=== PATIENT | male | born 1970 | race African-American/Black ===

== ENCOUNTER 2017-07-08 16:27 | Emergency (ER) | payer SELFPAY ==
--- NOTE | 2017-07-08 16:34 | DR.EXTPAIN ---
HPI - Time seen Time seen: 16:30 - HPI Comment HPI Comment: PATIENT HAD LT HIP REPLACEMENT FEBRUARY 2016. FELT LIKE HIP MAY BE OUT OF PLACE. BENIES LOC, NECK PAIN OR TRAUMA TO HEAD. - Complaint/Symptoms Chief Complaint Doctor Comments: FELL AT [facility] AND HAVE LOWER BACK PAIN, LT HIP PAIN AND RT WRIST PAIN. - Nurses notes reviewed Nurses Notes Review: Yes - Source History Provided: Patient, EMS - Mode of arrival Mode of Arrival: Stretcher - Context History of: Arthritis, Hip Operation - Associated signs and symptoms Associated Signs and Symptoms: Pain PMH - PMH Past Medical History: Hypertension Past Surgical History: Yes Surgical History: Ortho Surgery - Family History Family Medical History: Hypertension - Social History Do you use any recreational Drugs:: No ROS - Review of Systems Constitutional: No Symptoms Reported Eyes: No Symptoms Reported ENTM: No Symptoms Reported Respiratoy: No Symptoms Reported Cardiovascular: No Symptoms Reported Gastrointestinal/Abdominal: No Symptoms Reported Genitourinary: No Symptoms Reported Neurological: No Symptoms Reported Musculoskeletal: Back Pain (lower back pain), Right, Left, Wrist, Hip Integumentary: No Symptoms Reported Hematologic/Lymphatic: No Symptoms Reported Endocrine: No Symptoms Reported All Other Systems: Reviewed and Negative PE - Vital Signs Vitals: Temperature 97.7 F Pulse Rate [Right Radial] 95 Pulse Rate 98 Respiratory Rate 18 Blood Pressure [Left Arm] 159/106 Blood Pressure [Right Arm] 177/107 Blood Pressure 171/115 O2 Sat by Pulse Oximetry 98 - General Limitations: No Limitations General Appearance: Alert - Head Head Exam: Normal Inspection - Eyes Eye exam: Normal Appearance - ENT ENT Exam: Normal External Ear Exam - Neck Neck Exam: Normal Inspection - Chest Chest Inspection: Symmetric Chest Wall Rise - Respiratory Respiratory Exam: Normal Lung Sounds Bilat Respiratory Exam: Bilateral Clear to Auscultation - Cardiovascular Cardiovascular Exam: Regular Rate, Normal Rhythm, Normal Heart Sounds - Abdominal Exam Abdominal Exam: Normal Bowel Sounds, Soft. negative: Tenderness - Extremities Extremities Exam: Tenderness (LT HIP AND RT WRIST TENDERNESS. VY.) - Lower Extremities Neurovascular/Tendon Exam: Normal Capillary Refill - Back Back Exam: Vertebral Tenderness (LOWER BACK TENDERNESS.) - Neurological Neurological Exam: Alert, Oriented X3 - Psychiatric Psychiatric Exam: Normal Affect, Normal Mood - Skin Skin Exam: Erythema MDM - Differential Diagnosis Differential Diagnosis: Contusion, Fracture, Sprain (DISLOCATION) Course - Treatment Treatment: SEE ORDERS. PATIENT DID NOT WISH TO HAVE XRAY STUDIES DONE OR HAVE FURTHER EVALUATION. HE SIGN AMA. - Education/Counseling Education/Counseling: Patient, Education Educated On: Diagnosis, Needs for Follow Up - Diagnosis Discharge Problem: Left hip pain, Right wrist pain Lower back pain Qualifiers: Chronicity: acute Back pain laterality: bilateral Sciatica presence: without sciatica Qualified Code(s): M54.5 - Low back pain - Discharge Plan Disposition: 07 AGAINST MEDICAL ADVICE Condition: Stable - Follow ups/Referrals Follow ups/Referrals: NFD,None [Primary Care Provider] - 3 days - Instructions
[2017-07-08 16:41] VITALS: BMI 35.4
[2017-07-08] MEDS ORDERED: NORFLEX INJ IM ONE (16:44)
[2017-07-08 17:04] VITALS: BP 159/106
== END 2017-07-08 17:03 | disposition left against medical advice (07) ==
LOC: ER 16:33
DX: M79.672 Pain in left foot (principal); M25.531 Pain in right wrist; M54.5 Low back pain; W19.XXXA Unspecified fall, initial encounter; Y92.89 Other specified places as the place of occurrence of the external cause
CPT/HCPCS: 99281

== ENCOUNTER 2017-08-19 06:48 | Emergency (ER) | payer SELFPAY ==
[2017-08-19 06:53] VITALS: BP 190/123; BMI 34.7
[2017-08-19] MEDS ORDERED: TORADOL 60 MG VIAL IM ONE (07:04)
[2017-08-19] MEDS ORDERED: TORADOL 60 MG VIAL ONE (07:05)
--- NOTE | 2017-08-19 07:05 | DR.GENAD ---
HPI - PCP Primary Care Physician: BAILEY - Complaint/Symptoms Chief Complaint Doctors Comments: Patient for evaluation of a rash on lower extremities and buttock of two days duration. The rash is erythematous and tender. Chief Complaint:: PT C/O BUMPS ON BILAT LEGS AND BUTTOCKS. PT STATES HE WORKS OUTSIDE AND HE THINKS HE GOT INTO SOMETHING. PT STATES HE DOES NOT WANT THE INFECTION TO GET TO HIS BLOOD STREAM. PT STATES THE PLACES HAS BEEN THERE FOR APPROX 2-3 DAYS. - Source History Provided: Patient - Mode of Arrival Mode of Arrival: Ambulatory - Timing Onset of Chief Complaint: 08/17/17 PMH - PMH Past Medical History: Yes Past Medical History: Hypertension Past Surgical History: Yes Surgical History: Ortho Surgery - Family History History of Family Medical Conditions: Yes Family Medical History: Hypertension - Social History Does patient currently use any type of tobacco product: Yes Have you used tobacco products in the last 12 months: Yes Type of Tobacco Use: Cigarettes Does any household member use tobacco: Yes Alcohol Use: None Do you use any recreational Drugs:: No Lives With: Family Lives Where: Home - infectious screening In the last 2 months have you had wt loss of >10#?: NO Have you had fever, night sweats or hemotysis?: No Have you traveled outside the country in the last 6 months?: No Isolation: Standard ROS - Review of Systems ENTM: No Symptoms Reported Respiratoy: No Symptoms Reported Cardiovascular: No Symptoms Reported Gastrointestinal/Abdominal: No Symptoms Reported Genitourinary: No Symptoms Reported Neurological: No Symptoms Reported Musculoskeletal: No Symptoms Reported Integumentary: No Symptoms Reported Endocrine: No Symptoms Reported Psychiatric: No Symptoms Reported All Other Systems: Reviewed and Negative PE - Vital Signs Vitals: Temperature 97.6 F Pulse Rate 94 Respiratory Rate 18 Blood Pressure [Left Arm] 159/106 Blood Pressure [Right Arm] 177/107 Blood Pressure 190/123 O2 Sat by Pulse Oximetry 98 - General Limitations: No Limitations General Appearance: Alert - Head Head Exam: Normal Inspection, Atraumatic - Eyes Eye exam: Normal Appearance, PERRL, EOMI - ENT ENT Exam: Normal Exam External Ear Exam: Normal External Inspection TM/Canal Exam: Bilateral Normal Nose Exam: Normal Nose Exam Mouth Exam: Normal Inspection Throat Exam: Normal Inspection - Neck Neck Exam: Normal Inspection - Chest Chest Inspection: Normal Inspection - Respiratory Respiratory Exam: Normal Lung Sounds Bilat Respiratory Exam: Bilateral Clear to Auscultation - Cardiovascular Cardiovascular Exam: Regular Rate, Normal Rhythm - Abdominal Exam Abdominal Exam: Normal Inspection Abdominal Tenderness: negative: RUQ, RLQ, LUQ, LLQ, Epigastrium, Suprapubic, Diffuse, Mild, Moderate, Severe, Other - Extremities Extremities Exam: Other (tender erythematous papules upper anteror thigh ) - Back Back Exam: Normal Inspection - Neurologic Neurological Exam: Alert, Oriented X3 - Skin Skin Exam: Warm, Dry, Other (Erythematous maculopapula erythematous rash on buttock and upper anter thigh) - Diagnosis Discharge Problem: Cellulitis Qualifiers: Site of cellulitis: buttock Qualified Code(s): L03.317 - Cellulitis of buttock - Discharge Plan Condition: Stable - Follow ups/Referrals Follow ups/Referrals: JUSTIN AVALOS [Primary Care Provider] - 3 days - Instructions
== END 2017-08-19 07:38 | disposition home or self-care (01) ==
LOC: ER 06:48
DX: L03.317 Cellulitis of buttock (principal)
CPT/HCPCS: 96372; 99282; J1885

== ENCOUNTER 2017-12-24 03:58 | Emergency (ER) | payer SELFPAY ==
[2017-12-24 04:06] VITALS: BMI 41.1
[2017-12-24] MEDS ORDERED: FUL-GLO STRIP EACHEYE ONE (04:10)
[2017-12-24] MEDS ORDERED: TETRACAINE HCL AFFEYE ONE (04:11)
[2017-12-24] MEDS ORDERED: TETRACAINE HCL ONE (04:13)
[2017-12-24] MEDS ORDERED: FUL-GLO STRIP ONE (04:13)
--- NOTE | 2017-12-24 04:24 | DR.GENAD ---
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 He also reports that his feet have been hurting from gout. Chief Complaint:: "FLASHED EYES AND FEET" Self Treatment fo Chief Complaint: USED EYES DROPS - Source History Provided: Patient - Mode of Arrival Mode of Arrival: Ambulatory - Timing Onset of Chief Complaint: 12/23/17 PMH - PMH Past Medical History: Yes Past Medical History: Gout, Hypertension Past Surgical History: Yes Surgical History: Ortho Surgery Past Surgical History Comment: HIP REPLACEMENT 2013. - Family History History of Family Medical Conditions: No Family Medical History: Hypertension - Social History Does any household member use tobacco: No Alcohol Use: Occasionally Do you use any recreational Drugs:: No Lives With: Family Lives Where: Home - infectious screening In the last 2 months have you had wt loss of >10#?: NO Have you had fever, night sweats or hemotysis?: No Have you traveled outside the country in the last 6 months?: No Isolation: Standard ROS - Review of Systems Eyes: See HPI, Blurred Vision ENTM: No Symptoms Reported Respiratoy: No Symptoms Reported Cardiovascular: No Symptoms Reported Gastrointestinal/Abdominal: No Symptoms Reported Genitourinary: No Symptoms Reported Neurological: No Symptoms Reported Musculoskeletal: No Symptoms Reported Integumentary: No Symptoms Reported Hematologic/Lymphatic: No Symptoms Reported Endocrine: No Symptoms Reported Psychiatric: No Symptoms Reported All Other Systems: Reviewed and Negative PE - Vital Signs Vitals: Temperature 97.3 F Pulse Rate 85 Respiratory Rate 22 Blood Pressure [Left Arm] 159/106 Blood Pressure [Right Arm] 177/107 Blood Pressure 169/106 O2 Sat by Pulse Oximetry 97 - General Limitations: No Limitations General Appearance: Alert, In No Apparent Distress - Head Head Exam: Normal Inspection, Atraumatic - Eyes Eye exam: Normal Appearance, PERRL, EOMI, Other (corneal abrasion bilaterally R> L) - ENT ENT Exam: Normal Exam External Ear Exam: Normal External Inspection TM/Canal Exam: Bilateral Normal Nose Exam: Normal Nose Exam Mouth Exam: Normal Inspection Throat Exam: Normal Inspection - Neck Neck Exam: Normal Inspection, Full ROM - Chest Chest Inspection: Normal Inspection, Symmetric Chest Wall Rise - Respiratory Respiratory Exam: Normal Lung Sounds Bilat Respiratory Exam: Bilateral Clear to Auscultation - Cardiovascular Cardiovascular Exam: Regular Rate, Normal Rhythm - Abdominal Exam Abdominal Exam: Normal Inspection Abdominal Tenderness: negative: RUQ, RLQ, LUQ, LLQ, Epigastrium, Suprapubic, Diffuse, Mild, Moderate, Severe, Other - Extremities Extremities Exam: Normal Inspection, Full ROM - Back Back Exam: Normal Inspection - Neurologic Neurological Exam: Alert, Oriented X3, CN II-XII Intact - Psychiatric Psychiatric Exam: Normal Affect - Skin Skin Exam: Warm, Dry, Intact Course - Reevaluation 1st: Improved - Education/Counseling Educated On: Treatment, Diagnosis, Prognosis, Needs for Follow Up - Diagnosis Discharge Problem: Bilateral corneal abrasions Qualifiers: Encounter type: initial encounter Qualified Code(s): S05.01XA - Injury of conjunctiva and corneal abrasion without foreign body, right eye, initial encounter; S05.02XA - Injury of conjunctiva and corneal abrasion without foreign body, left eye, initial encounter; S05.02XA - Injury of conjunctiva and corneal abrasion without foreign body, left eye, initial encounter - Discharge Plan Condition: Stable - Follow ups/Referrals Follow ups/Referrals: NFD,None [Primary Care Provider] - 3 days - Instructions
[2017-12-24] MEDS ORDERED: TORADOL 60 MG VIAL IM ONE (04:30)
[2017-12-24] MEDS ORDERED: TORADOL 60 MG VIAL ONE (04:31)
[2017-12-24 05:32] VITALS: BP 160/100
== END 2017-12-24 05:34 | disposition home or self-care (01) ==
LOC: ER 03:58
DX: S05.01XA Injury of conjunctiva and corneal abrasion without foreign body, right eye, initial encounter (principal); S05.02XA Injury of conjunctiva and corneal abrasion without foreign body, left eye, initial encounter; W89.0XXA Exposure to welding light (arc), initial encounter
CPT/HCPCS: 96372; 99282; J1885